=== PATIENT | female | born 1955 | race Caucasian/White ===

== ENCOUNTER 2017-06-04 01:09 | Emergency (ER) | payer OTHER ==
[2017-06-04 01:18] VITALS: BP 126/76
--- NOTE | 2017-06-04 01:32 | EDM.PDOC ---
ED HPI GENERAL MEDICAL PROBLEM - General Chief Complaint: Genitourinary Problem Stated Complaint: BLADDER PROBLEMS Time Seen by Provider: 06/04/17 01:15 Source of Information: Reports: Patient, Family (), RN Notes Reviewed History Limitations: Reports: No Limitations - History of Present Illness INITIAL COMMENTS - FREE TEXT/NARRATIVE: The patient states that she has been experiencing urinary frequency, urgency, and suprapubic pressure for the past 2 hours. When she attempts to urinate, she gets only a very small amount. She denies dysuria, low back, or flank pain. No recent fever, nausea, or vomiting. She states that she has had similar symptoms when she has had a UTI in the past. She does not have frequent UTIs. She states that she has not tried to take anything for her symptoms. She and her have been driving over the past 2 days from [employer]. - Related Data Allergies Allergy/AdvReac Type Severity Reaction Status Date / Time Iodinated Contrast- Oral and Allergy Severe Shortness Verified 06/04/17 01:29 IV Dye of Breath erythromycin base Allergy Stomach Verified 06/04/17 01:20 Upset tioconazole Allergy Itching Verified 06/04/17 01:20 [From Monistat 1 (tioconazole)] Home Meds: Home Meds Gluc 2KCl/Chondr/Buster Hy/Hy Ac [Glucosamine & Chondroitin Cap] 1 cap PO DAILY [History] Metoprolol Tartrate [Lopressor] 25 mg PO BID 06/04/17 [History] Past Medical History Cardiovascular History: Reports: High Cholesterol (untreated) Musculoskeletal History: Reports: Arthritis (suspected) Neurological History: Reports: Migraines - Past Surgical History HEENT Surgical History: Reports: Eye Surgery (Bilateral radial keratotomy) GI Surgical History: Reports: Cholecystectomy Social & Family History - Tobacco Use Smoking Status *Q: Never Smoker Second Hand Smoke Exposure: No - Caffeine Use Caffeine Use: Reports: None - Alcohol Use Alcohol Use History: No - Recreational Drug Use Recreational Drug Use: No - Living Situation & Occupation Living situation: Reports: , with Spouse, with Family (Son) Occupation: Unemployed ED ROS GENERAL - Review of Systems Review Of Systems: See Below Constitutional: Reports: No Symptoms HEENT: Reports: No Symptoms Respiratory: Reports: No Symptoms Cardiovascular: Reports: No Symptoms Endocrine: Reports: No Symptoms GI/Abdominal: Reports: No Symptoms : Reports: No Symptoms Musculoskeletal: Reports: No Symptoms Skin: Reports: No Symptoms Neurological: Reports: No Symptoms Psychiatric: Reports: No Symptoms Hematologic/Lymphatic: Reports: No Symptoms Immunologic: Reports: No Symptoms ED EXAM, RENAL/ - Physical Exam Exam: See Below Exam Limited By: No Limitations General Appearance: Alert, WD/WN, No Apparent Distress Eye Exam: Bilateral Eye: Normal Inspection Ears: Normal External Exam, Hearing Grossly Normal Nose: Normal Inspection, No Blood Throat/Mouth: Normal Inspection, Normal Lips, Normal Voice, No Airway Compromise Head: Atraumatic, Normocephalic Neck: Normal Inspection, Full Range of Motion Respiratory/Chest: No Respiratory Distress, Lungs Clear, Normal Breath Sounds, No Accessory Muscle Use Cardiovascular: Normal Peripheral Pulses, Regular Rate, Rhythm, No Gallop, No JVD, No Murmur, No Rub GI/Abdominal: Normal Bowel Sounds, Soft, No Organomegaly, No Distention, No Abnormal Bruit, No Mass, Tender (Mild, in the suprapubic region only. Nontender elsewhere.) (Female) Exam: Deferred Back Exam: Normal Inspection, Full Range of Motion. No: CVA Tenderness (L), CVA Tenderness (R) Extremities: Normal Inspection, Normal Range of Motion, No Pedal Edema, Normal Capillary Refill Neurological: Alert, Oriented, Normal Cognition, No Motor/Sensory Deficits Psychiatric: Normal Affect Skin Exam: Warm, Dry, Intact, Normal Color, No Rash Lymphatic: No Adenopathy Course - Vital Signs Last Recorded V/S: Last Vital Signs Temp 36.1 C 06/04/17 01:14 Pulse 72 06/04/17 01:14 Resp 18 06/04/17 01:14 BP 126/76 06/04/17 01:14 Pulse Ox 100 06/04/17 01:14 - Orders/Labs/Meds Orders: Active Orders 24 hr Category Date Time Status CULTURE URINE [RM] Stat Lab 06/04/17 02:07 Uncollected Phenazopyridine [Urinary Pain Relief] Med 06/04/17 02:07 Stat 95 mg PO ONETIME STA Labs: Laboratory Tests 06/04/17 Range/Units 01:30 Urine Color Yellow (Yellow) Urine Appearance Clear (Clear) Urine pH 5.5 (5.0-8.0) Ur Specific [place] > or = 1.030 (1.005-1.030) Urine Protein Negative (Negative) Urine Glucose (UA) Negative (Negative) Urine Ketones Negative (Negative) Urine Occult Blood 2+ H (Negative) Urine Nitrite Negative (Negative) Urine Bilirubin Negative (Negative) Urine Urobilinogen 0.2 (0.2-1.0) Ur Leukocyte Esterase Negative (Negative) Urine RBC 0-5 (0-5) /hpf Urine WBC 0-5 (0-5) /hpf Ur Epithelial Cells 0-5 (0-5) /hpf Calcium Oxalate Crystal Few H (NONE) Urine Bacteria Few (FEW) /hpf Hyaline Casts 0-5 (0-5) /lpf Urine Mucus Few (FEW) /hpf - Re-Assessments/Exams Free Text/Narrative Re-Assessment/Exam: 06/04/17 02:09 Test results discussed with the patient and her . Her urinalysis is not consistent with a UTI. There is a small amount of blood, however, the patient denies flank pain that one would expect she have if she were experiencing a ureterolith. Her symptoms may be due to interstitial cystitis. I am recommending that she take [id number] Pyridium for symptomatic relief, but I don't see an indication for antibiotic at this time. I have ordered a urine culture, and will refer the patient to the clinic. She can call the clinic on 06/06/2017 to check on her urine culture results. Departure - Departure Time of Disposition: 02:10 Disposition: Home, Self-Care 01 Condition: Good Clinical Impression: Urinary symptom or sign - Discharge Information Referrals: PCP,Not In Area [Primary Care Provider] - Vesna Roberson PA-C [Physician [employer]] - Forms: ED Department Discharge Additional Instructions: You were seen in the emergency room for urinary urgency and frequency, along with bladder pressure. Workup in the ER included a urinalysis, which returned as essentially normal. It does not appear that you have a urinary tract infection. The cause of your symptoms is unclear, but may be due to a condition called interstitial cystitis. You have been started on the urinary tract symptom-reliever medicine Pyridium. This medicine is also available [id number], sold as "Azo". You may take a total of 6 doses - either one dose 3 times a day for 2 days, or one dose twice a day for 3 days. Stay adequately hydrated. A sample of your urine was sent for culture. Contact the office of Vesna Roberson on 06/06/2017, to follow-up on your urine culture results. If it turns out that you do have a urinary tract infection, you will need to be started on an antibiotic. If any other problems, please do not hesitate to return to the ER. - My Orders Last 24 Hours: My Active Orders 06/04/17 02:07 CULTURE URINE [RM] Stat Phenazopyridine [Urinary Pain Relief] 95 mg PO ONETIME STA - Assessment/Plan Last 24 Hours: My Active Orders 06/04/17 02:07 CULTURE URINE [RM] Stat Phenazopyridine [Urinary Pain Relief] 95 mg PO ONETIME STA
[2017-06-04] MEDS ORDERED: Phenazopyridine 95 MG Tab PO STA (02:07)
== END 2017-06-04 02:24 | disposition home or self-care (01) ==
LOC: JD.ED 01:09
DX: R35.0 Frequency of micturition (principal); R39.15 Urgency of urination; E78.00 Pure hypercholesterolemia, unspecified; Z90.49 Acquired absence of other specified parts of digestive tract; Z98.890 Other specified postprocedural states; Z88.1 Allergy status to other antibiotic agents; Z88.8 Allergy status to other drugs, medicaments and biological substances; Z91.041 Radiographic dye allergy status; Z79.899 Other long term (current) drug therapy
CPT/HCPCS: 81001; 87086; 99283; A9270; 99282